=== PATIENT | female | born 1980 | race Two or more races ===

== ENCOUNTER → 2019-07-05 | Outpatient (CLI) | payer OTHER | END | disposition home or self-care (01) | LOC: PRENATAL 14:00 | DX: O35.3XX0 Maternal care for (suspected) damage to fetus from viral disease in mother, not applicable or unspecified (principal); O09.511 Supervision of elderly primigravida, first trimester; O34.11 Maternal care for benign tumor of corpus uteri, first trimester; O99.212 Obesity complicating pregnancy, second trimester; O10.011 Pre-existing essential hypertension complicating pregnancy, first trimester; Z36.89 Encounter for other specified antenatal screening ==

== ENCOUNTER → 2019-08-09 | Outpatient (CLI) | payer OTHER | END | disposition home or self-care (01) | LOC: PRENATAL 13:00 | PROVIDERS: ATTEND Obstetrics & Gynecology | DX: O10.012 Pre-existing essential hypertension complicating pregnancy, second trimester (principal); O99.212 Obesity complicating pregnancy, second trimester; O09.512 Supervision of elderly primigravida, second trimester ==

== ENCOUNTER → 2019-09-24 | Outpatient (CLI) | payer OTHER | END | disposition home or self-care (01) | LOC: PRENATAL 09-12 13:00 | PROVIDERS: ATTEND Obstetrics & Gynecology Maternal & Fetal Medicine | DX: O26.843 Uterine size-date discrepancy, third trimester (principal); O09.513 Supervision of elderly primigravida, third trimester; O99.213 Obesity complicating pregnancy, third trimester; O10.013 Pre-existing essential hypertension complicating pregnancy, third trimester; Z36.89 Encounter for other specified antenatal screening; Z3A.32 32 weeks gestation of pregnancy ==

== ENCOUNTER → 2019-10-22 | Outpatient (CLI) | payer OTHER ==
[~2019-10-22] MED LIST: ADULT ASPIRIN81 MG PO; ALDOMET PO; DIALYVITE 800-1 EACH PO; METHYLDOPA500 MG PO; PRENATAL TABLE1 EAC1 PO
== END | disposition home or self-care (01) ==
LOC: PRENATAL 13:16
PROVIDERS: ATTEND Obstetrics & Gynecology Maternal & Fetal Medicine
DX: O26.843 Uterine size-date discrepancy, third trimester (principal); O13.3 Gestational [pregnancy-induced] hypertension without significant proteinuria, third trimester; O99.213 Obesity complicating pregnancy, third trimester; Z36.89 Encounter for other specified antenatal screening; Z3A.36 36 weeks gestation of pregnancy

== ENCOUNTER 2019-10-29 07:07 | Inpatient (IN) | payer OTHER ==
[~2019-10-29] VITALS: Ht 149.9 cm; Wt 93.4 kg
[2019-10-29] MEDS ORDERED: DIALYVITE 800-1 EACH PO (07:12)
[2019-10-29] MEDS ORDERED: PRENATAL TABLE1 EAC1 PO (07:12)
[2019-10-29] MEDS ORDERED: ADULT ASPIRIN81 MG PO (07:13)
[2019-10-29] MEDS ORDERED: ALDOMET PO (07:15)
[2019-10-29] MEDS ORDERED: METHYLDOPA500 MG PO (11:57)
== END 2019-11-02 13:52 | DRG 788 ==
LOC: OB/GYN 07:07 → LDR 07:07 → OB/GYN 17:43
PROVIDERS: ADMIT Obstetrics & Gynecology; ATTEND Obstetrics & Gynecology
PROC: 4A0HXFZ Measurement of Products of Conception, Cardiac Rhythm, External Approach (ICD-10-PCS; 2019-10-29)
PROC: 10D00Z1 Extraction of Products of Conception, Low, Open Approach (ICD-10-PCS; principal; 2019-10-30)
DX: O41.03X0 Oligohydramnios, third trimester, not applicable or unspecified (principal); Z3A.37 37 weeks gestation of pregnancy; Z37.0 Single live birth